=== PATIENT | male | born 1960 | race Caucasian/White ===

== ENCOUNTER → 2018-11-18 10:21 | Outpatient (CLI) | payer MEDICAID | END | disposition home or self-care (01) | LOC: D.MRI 10:21 | DX: M25.562 Pain in left knee (principal) ==

== ENCOUNTER → 2018-11-23 17:28 | Outpatient (CLI) | payer MEDICAID | END | disposition home or self-care (01) | LOC: D.LABREF 17:28 | DX: M17.12 Unilateral primary osteoarthritis, left knee (principal); Z11.8 Encounter for screening for other infectious and parasitic diseases ==

== ENCOUNTER 2018-11-26 10:15 | Inpatient (IN) | payer MEDICAID ==
[~2018-11-26] VITALS: Ht 180.3 cm; Wt 81.8 kg
[2018-12-22] MEDS ORDERED: IBUPROFEN800 MG PO (11:00)
[2018-12-22 11:57] LABS: BASOPHILS 0.3 % (0-2); EOSINOPHILS 2.8 % (0-7); HEMATOCRIT 45.4 % (42.0-54.0); HEMOGLOBIN 15.2 g/dL (13.5-17.5); IMMATURE GRANULOCYTES 0.3 % (0-5); LYMPHOCYTES 41.8 % (15-50); MCH 32.1 pg (26.0-34.0); MCHC 33.5 g/dL (31.0-37.0); MCV 95.8 fL (80.0-100.0); MEAN PLATELET VOLUME 10.4 fL (7.4-10.4); MONOCYTES 6.7 % (2-11); NEUTROPHILS 48.1 % (40-80); PLATELET COUNT 219 10x3/uL (130-400); RBC 4.74 10x6/uL (4.20-6.10); RDW 13.3 % (11.5-14.5)
[2018-12-22 12:04] LABS: CALC OSMOLALITY 279 mosm/kg (275-300); CALCIUM 8.5 mg/dL (8.5-10.1); CARBON DIOXIDE 31.5 mmol/L (21.0-32.0); CHLORIDE - SERUM 103 mmol/L (98-107); CREATININE - SERUM 0.9 mg/dL (0.6-1.3); GLUCOSE 93 mg/dL (74-106); POTASSIUM - SERUM 4.5 mmol/L (3.5-5.1); SODIUM 141 mmol/L (136-145); UREA NITROGEN 11 mg/dL (7-18); eGFR NON AFRICAN AMERICAN > 90 mL/min (90-120)
[2018-12-22 12:10] LABS: APTT 30.4 SECONDS (22.8-39.4); INR 0.92 (0.85-1.17); PROTIME 11.9 SECONDS (11.6-15.0)
[2018-12-22 12:39] LABS: APPEARANCE CLEAR (CLEAR); COLOR YELLOW (YELLOW)
[2018-12-22 12:40] LABS: BILIRUBIN NEGATIVE (NEGATIVE); GLUCOSE NEGATIVE (NEGATIVE); KETONE NEGATIVE (NEGATIVE); NITRITE NEGATIVE (NEGATIVE); PROTEIN NEGATIVE (NEGATIVE); UROBILINOGEN NORMAL (NORMAL)
[2018-12-29 06:09] VITALS: BP 128/81; BMI 25.1
[2018-12-29 10:36] VITALS: BP 116/66
[2018-12-29 13:50] VITALS: Ht 180.3 cm; Wt 81.8 kg
[2018-12-29 16:28] VITALS: BP 112/70
--- NOTE | 2018-12-29 19:30 | NUR ---
REC'D REPORT FROM DAY SHIFT NURSE. ASSESSMENT PER FLOWSHEET. PT LEFT LEG IN CPM MACHINE. DRESSING TO LEFT KNEE C/D/I WITH PROVERA WOUND VAC IN PLACE. IV PATENT LEFT FOREARM OF NS AT 20CC'S/HR SITE CLEAR, VOIDS WELL IN URINAL.
[2018-12-29 20:00] VITALS: BP 110/56
--- NOTE | 2018-12-29 21:17 | NUR ---
C/O PAIN INCISIONAL AREA RATES PAIN LEVEL #4 NORCO 7.5 MG PO GIVEN FOR PAIN CONTROL.
--- NOTE | 2018-12-30 00:32 | NUR ---
EYES CLOSED RESPIRATIONS WITH EAS AND UNLABORED
[2018-12-30 03:53] LABS: BASOPHILS 0 % (0-2); EOSINOPHILS 0.5 % (0-7); HEMATOCRIT 34.1 % (42.0-54.0); HEMOGLOBIN 11.8 g/dL (13.5-17.5); LYMPHOCYTES 28.2 % (15-50); MCH 32.4 pg (26.0-34.0); MCHC 34.6 g/dL (31.0-37.0); MCV 93.7 fL (80.0-100.0); MEAN PLATELET VOLUME 10.3 fL (7.4-10.4); MONOCYTES 9.7 % (2-11); NEUTROPHILS 61.6 % (40-80); RBC 3.64 10x6/uL (4.20-6.10); WBC 7.5 10x3/uL (4.8-10.8)
[2018-12-30 03:55] LABS: PLATELET COUNT 171 10x3/uL (130-400)
[2018-12-30 04:00] VITALS: BP 103/46
--- NOTE | 2018-12-30 04:00 | NUR ---
LAB DRAWN PT VOIDS IN URINAL
[2018-12-30 04:05] LABS: CALC OSMOLALITY 277 mosm/kg (275-300); CALCIUM 7.8 mg/dL (8.5-10.1); CARBON DIOXIDE 30.5 mmol/L (21.0-32.0); CHLORIDE - SERUM 105 mmol/L (98-107); CREATININE - SERUM 0.9 mg/dL (0.6-1.3); GLUCOSE 106 mg/dL (74-106); POTASSIUM - SERUM 3.9 mmol/L (3.5-5.1); SODIUM 140 mmol/L (136-145); UREA NITROGEN 10 mg/dL (7-18); eGFR NON AFRICAN AMERICAN > 90 mL/min (90-120)
[2018-12-30 10:11] VITALS: BP 101/53
--- NOTE | 2018-12-30 11:14 | MORECARE ---
CASE MANAGEMENT DISCHARGE SUMMARY PATIENT: DUKE MCWILLIAMS UNIT: [id number] ADM DATE: 12/29/18 AGE: 58 : 62 SEX: M ROOM/BED: D.2223 AUTHOR: RAFIQ BLACKWELL PHYSICIAN: REFERRING PHYSICIAN: SKYLAR HONG MD DATE OF SERVICE: 12/30/18 Discharge Plan Patient Name: DUKE MCWILLIAMS [facility] : 1960 Planned Disposition: Home Anticipated Discharge Date: 12/31/18 Discharge Date: Expected LOS: 2 Initial Reviewer: [email or web address] Initial Review Date: 12/30/2018 Generated: 12/30/18 12:14 pm DCPIA - Discharge Planning Initial Assessment Updated by [email or web address]: Marjorie Cintron on 12/30/18 11:11 am * Is the patient Alert and Oriented? Yes * How many steps to enter\exit or inside your home? 2/0 * PCP Dr. Marie in [place] * Pharmacy [facility] in [place] * Preadmission Environment Home Alone * ADLs Independent * Equipment None * List name and contact numbers for known caregivers / representatives who currently or will assist patient after discharge: Issac De Jesus - [phone] * Verbal permission to speak to the caregivers and representatives has been obtained from the patient. Yes * Community resources currently utilized None * Additional services required to return to the preadmission environment? Yes * Can the patient safely return to the preadmission environment? Yes * Has this patient been hospitalized within the prior 30 days at any hospital? No External Providers External Provider: OTHER-OTHER Next Contact Date: Service Request Date: Service Type: Resolution: Reviewer: Comments: Patient Name: DUKE MCWILLIAMS Page 38822 at 1114 All edits/amendments must be made on the electronic document DICTATION DATE: 12/30/18 111 SPRING COVERER: DESI 12/30/181112 RPT#: [id number] DC DATE: STATUS: ADM IN [facility] [address] [place] [address] END OF REPORT
--- NOTE | 2018-12-30 11:23 | MORECARE ---
CASE MANAGEMENT DISCHARGE SUMMARY PATIENT: DUKE MCWILLIAMS UNIT: [id number] ADM DATE: 12/29/18 AGE: 58 : 62 SEX: M ROOM/BED: D.2223 AUTHOR: RAFIQ BLACKWELL PHYSICIAN: REFERRING PHYSICIAN: SKYLAR HONG MD DATE OF SERVICE: 12/30/18 Discharge Plan Patient Name: DUKE MCWILLIAMS Facility: [facility]:[place] : 1960 Planned Disposition: Home Anticipated Discharge Date: 12/31/18 Discharge Date: Expected LOS: 2 Initial Reviewer: [email or web address] Initial Review Date: 12/30/2018 Generated: 12/30/18 12:23 pm Comments DCP- Discharge Planning Updated by [email or web address]: Marjorie Cintron on 12/30/18 10:[address] Patient Name: DUKE MCWILLIAMS Admission Status: Elective Accout number: [id number] Admission Date: 12-29-2018 : 1960 Admission Diagnosis: Attending: SKYLAR HONG Current LOS: 1 Anticipated DC Date: 12-31-2018 Planned Disposition: Home Primary Insurance: MEDICAID [place] Discharge Planning Comments: CM met with patient to discuss discharge planning/needs. He lives alone but will be staying with a friend (Issac De Jesus) for awhile post op at [address] [place] [address] in [facility]. Issac will pick him up as well. He does not have any equipment currently. I called the office and Jennifer states she is sending an order for walker, BSC and CPM to [employer]. I called Prem with [employer] and informed him and facesheet faxed to them. Prem states he will send DME here to the hospital tomorrow. Patient asks me to call Issac for OP PT choice. I called Issac and he states to use [facility] in [place]. I called Sports Medicine and spoke with Beatriz. His first appointment will be 11:45 (arrive at 11:00) on Thursday. Beatriz states they will make the other appointments in the afternoon as requested. I will fax the orders when Jennifer from the office faxes it to me. CM will continue to follow and assist with discharge planning/needs. Issac De Jesus (friend) - [phone] [facility] in [place] - [phone] Fax - [phone] Prize Jacker: Marjorie Cintron DCPIA - Discharge Planning Initial Assessment Updated by [email or web address]: Marjorie Cintron on 12/30/18 11:11 am * Is the patient Alert and Oriented? Yes * How many steps to enter\exit or inside your home? 2/0 * PCP Dr. Marie in [place] * Pharmacy [facility] in [place] * Preadmission Environment Home Alone * ADLs Independent * Equipment None * List name and contact numbers for known caregivers / representatives who currently or will assist patient after discharge: Issac Neal - [phone] * Verbal permission to speak to the caregivers and representatives has been obtained from the patient. Yes * Community resources currently utilized None * Additional services required to return to the preadmission environment? Yes * Can the patient safely return to the preadmission environment? Yes * Has this patient been hospitalized within the prior 30 days at any hospital? No Last DP export: 12/30/18 10:14 a Patient Name: DUKE MCWILLIAMS Page 05285 at 1123 All edits/amendments must be made on the electronic document DICTATION DATE: 12/30/181121 HOT KETTLE TENDER: DESI 12/30/181121 RPT#: [id number] DC DATE: STATUS: ADM IN [facility] [address] [place] [address] END OF REPORT
--- NOTE | 2018-12-30 12:34 | MORECARE ---
CASE MANAGEMENT DISCHARGE SUMMARY PATIENT: DUKE MCWILLIAMS UNIT: [id number] ADM DATE: 12/29/18 AGE: 58 : 62 SEX: M ROOM/BED: D.2223 AUTHOR: RAFIQ BLACKWELL PHYSICIAN: REFERRING PHYSICIAN: SKYLAR CANNON MD DATE OF SERVICE: 12/30/18 Discharge Plan Patient Name: DUKE MCWILLIAMS Facility: [facility]:[place] : 1960 Planned Disposition: Home Anticipated Discharge Date: 12/31/18 Discharge Date: Expected LOS: 2 Initial Reviewer: [email or web address] Initial Review Date: 12/30/2018 Generated: 12/30/18 1:34 pm Comments DCP- Discharge Planning Updated by [email or web address]: Marjorie Cintron on 12/30/18 11:[address] Received OP PT orders from Dr. Cannon's office and faxed order and clinical to [facility] in [place]. CM will continue to follow and assist with discharge planning/needs. DCP- Discharge Planning Updated by [email or web address]: Marjorie Cintron on 12/30/18 10:[address] Patient Name: DUKE MCWILLIAMS Admission Status: Elective Accout number: [id number] Admission Date: 12-29-2018 : 1960 Admission Diagnosis: Attending: SKYLAR CANNON Current LOS: 1 Anticipated DC Date: 12-31-2018 Planned Disposition: Home Primary Insurance: MEDICAID [place] Discharge Planning Comments: CM met with patient to discuss discharge planning/needs. He lives alone but will be staying with a friend (Issac De Jesus) for awhile post op at [address] [place] [address] in [facility]. Issac will pick him up as well. He does not have any equipment currently. I called the office and Jennifer states she is sending an order for walker, BSC and CPM to [employer]. I called Prem with [employer] and informed him and facesheet faxed to them. Prem states he will send DME here to the hospital tomorrow. Patient asks me to call Issac for OP PT choice. I called Issac and he states to use [facility] in [place]. I called Sports Medicine and spoke with Beartiz. His first appointment will be 11:45 (arrive at 11:00) on Thursday. Beatriz states they will make the other appointments in the afternoon as requested. I will fax the orders when Jennifer from the office faxes it to me. CM will continue to follow and assist with discharge planning/needs. Issac De Jesus (friend) - [phone] [facility] in [facility] [phone] Fax - [phone] People Greeter: Marjorie Cintron DCPIA - Discharge Planning Initial Assessment Updated by [email or web address]: Marjorie Cintron on 12/30/18 11:11 am * Is the patient Alert and Oriented? Yes * How many steps to enter\exit or inside your home? 2/0 * PCP Dr. Marie in [place] * Pharmacy [facility] in [place] * Preadmission Environment Home Alone * ADLs Independent * Equipment None * List name and contact numbers for known caregivers / representatives who currently or will assist patient after discharge: Issac Gordilloley - [phone] * Verbal permission to speak to the caregivers and representatives has been obtained from the patient. Yes * Community resources currently utilized None * Additional services required to return to the preadmission environment? Yes * Can the patient safely return to the preadmission environment? Yes * Has this patient been hospitalized within the prior 30 days at any hospital? No Last DP export: 12/30/18 10:23 a Patient Name: DUKE MCWILLIAMS Page [id number] at 1234 All edits/amendments must be made on the electronic document DICTATION DATE: 12/30/18 1234 ELECTROENCEPHALOGRAM TECHNOLOGIST: DESI 12/30/18 1234 RPT#: [id number] DC DATE: STATUS: ADM IN [facility] [address] [place] [address] END OF REPORT
[2018-12-30 13:37] VITALS: BP 108/73
--- NOTE | 2018-12-30 14:38 | MORECARE ---
CASE MANAGEMENT DISCHARGE SUMMARY PATIENT: DUKE MCWILLIAMS UNIT: [id number] ADM DATE: 12/29/18 AGE: 58 : 62 SEX: M ROOM/BED: D.2223 AUTHOR: RAFIQ BLACKWELL PHYSICIAN: REFERRING PHYSICIAN: SKYLAR CANNON MD DATE OF SERVICE: 12/30/18 Discharge Plan Patient Name: DUKE MCWILLIAMS Facility: [facility]:[place] : 1960 Planned Disposition: Home Anticipated Discharge Date: 12/31/18 Discharge Date: Expected LOS: 2 Initial Reviewer: [email or web address] Initial Review Date: 12/30/2018 Generated: 12/30/18 3:38 pm Comments DCP- Discharge Planning Updated by [email or web address]: Marjorie Cintron on 12/30/18 1:[address] Beatriz called from OP PT and states that he is not covered for therapy through an outpatient PT. States he will either need hospital based OP PT or can get HHS. He lives in [facility] and will be unable to have transportation to and from a hospital for PT. I spoke with Fredo and he suggest home health. I spoke with the patient and his friend (per patient request) and they chose [facility] in [place]. I called and spoke to Laura at [place] [facility] and clinical faxed. CM will continue to follow and assist with discharge planning/needs. [facility] - [phone] Fax - [phone] DCP- Discharge Planning Updated by [email or web address]: Marjorie Cintron on 12/30/18 11:[address] Received OP PT orders from Dr. Cannon's office and faxed order and clinical to [facility] in [place]. CM will continue to follow and assist with discharge planning/needs. DCP- Discharge Planning Updated by [email or web address]: Marjorie Cintron on 12/30/18 10:[address] Patient Name: DUKE MCWILLIAMS Admission Status: Elective Accout number: [id number] Admission Date: 12-29-2018 : 1960 Admission Diagnosis: Attending: SKYLAR CANNON Current LOS: 1 Anticipated DC Date: 12-31-2018 Planned Disposition: Home Primary Insurance: MEDICAID [place] Discharge Planning Comments: CM met with patient to discuss discharge planning/needs. He lives alone but will be staying with a friend (Issac De Jesus) for awhile post op at [address] in [facility]. Issac will pick him up as well. He does not have any equipment currently. I called the office and Jennifer states she is sending an order for walker, BSC and CPM to [employer]. I called Prem with [employer] and informed him and facesheet faxed to them. Prem states he will send DME here to the hospital tomorrow. Patient asks me to call Issac for OP PT choice. I called Issac and he states to use [facility] in [place]. I called Sports Medicine and spoke with Beatriz. His first appointment will be 11:45 (arrive at 11:00) on Thursday. Beatriz states they will make the other appointments in the afternoon as requested. I will fax the orders when Jennifer from the office faxes it to me. CM will continue to follow and assist with discharge planning/needs. Issac De Jesus (friend) - [phone] [facility] in [place] - [phone] Fax - [phone] Microbiology Laboratory Manager: Marjorie Cintron [facility] - Discharge Planning Initial Assessment Updated by [email or web address]: Marjorie Cintron on 12/30/18 11:11 am * Is the patient Alert and Oriented? Yes * How many steps to enter\exit or inside your home? 2/0 * PCP Dr. Marie in [place] * Pharmacy [facility] in [place] * Preadmission Environment Home Alone * ADLs Independent * Equipment None * List name and contact numbers for known caregivers / representatives who currently or will assist patient after discharge: Issac Neal - [phone] * Verbal permission to speak to the caregivers and representatives has been obtained from the patient. Yes * Community resources currently utilized None * Additional services required to return to the preadmission environment? Yes * Can the patient safely return to the preadmission environment? Yes * Has this patient been hospitalized within the prior 30 days at any hospital? No External Providers External Provider: [facility] Next Contact Date: Service Request Date: Service Type: Resolution: Reviewer: Comments: Last DP export: 12/30/18 11:34 a Patient Name: DUKE MCWILLIAMS Page 19510 at 1438 All edits/amendments must be made on the electronic document DICTATION DATE: 12/30/181436 COMMUNICATIONS PLANNER: DESI 12/30/181436 RPT#: [id number] DE DATE: STATUS: ADM IN [facility] [address] [place] [address] END OF REPORT
[2018-12-30 17:34] VITALS: BP 100/67
--- NOTE | 2018-12-30 18:50 | NUR ---
I have reviewed this patient and I concur with the Shift Assessment completed by the Licensed Practical Nurse today this shift.
--- NOTE | 2018-12-30 19:00 | NUR ---
REPORT RECEIVED AND CARE OF PT ASSUMED. PT LYING IN SUPINE POSITION...CPM OFF AND SITTING NEXT TO LEFT LEG...PT STATES HE TOOK IT OFF BECAUSE OF PAIN. DRESSING ON LEFT KNEE CLEAN AND DRY. IV IN LEFT FA SALINE LOCKED. WILL MONITOR FOR NEEDS.
[2018-12-30 20:00] VITALS: BP 134/81
--- NOTE | 2018-12-30 20:19 | NUR ---
HS MEDICATIONS GIVEN TO INCLUDE MORPHINE 2 MG IVP PER REQUEST FOR PAIN. WILL MONITOR FOR EFFECTIVENESS.
--- NOTE | 2018-12-30 22:41 | NUR ---
GAVE NORCO PO PER PT REQUEST FOR PAIN AT LEVEL 9/10. WILL MONITOR FOR EFFECTIVENESS.
[2018-12-31] VITALS: BP 134/85
[2018-12-31 03:52] LABS: BASOPHILS 0.1 % (0-2); EOSINOPHILS 0.5 % (0-7); HEMATOCRIT 34.1 % (42.0-54.0); HEMOGLOBIN 11.5 g/dL (13.5-17.5); LYMPHOCYTES 27.7 % (15-50); MCH 31.5 pg (26.0-34.0); MCHC 33.7 g/dL (31.0-37.0); MCV 93.4 fL (80.0-100.0); MEAN PLATELET VOLUME 9.9 fL (7.4-10.4); MONOCYTES 8.7 % (2-11); PLATELET COUNT 161 10x3/uL (130-400); RBC 3.65 10x6/uL (4.20-6.10); RDW 12.9 % (11.5-14.5); WBC 8.6 10x3/uL (4.8-10.8)
[2018-12-31 04:00] VITALS: BP 117/74
[2018-12-31 09:18] VITALS: BP 140/84
--- NOTE | 2018-12-31 11:49 | MORECARE ---
CASE MANAGEMENT DISCHARGE SUMMARY PATIENT: DUKE MCWILLIAMS UNIT: [id number] ADM DATE: 12/29/18 AGE: 58 : 62 SEX: M ROOM/BED: D.2223 AUTHOR: RISHI,DOC PHYSICIAN: REFERRING PHYSICIAN: SKYLAR CANNON MD DATE OF SERVICE: 12/31/18 Discharge Plan Patient Name: DUKE MCWILLIAMS Facility: [facility]:[place] : 1960 Planned Disposition: Home Anticipated Discharge Date: 12/31/18 Discharge Date: Expected LOS: 2 Initial Reviewer: [email or web address] Initial Review Date: 12/30/2018 Generated: 12/31/18 12:49 pm Comments DCP- Discharge Planning Updated by [email or web address]: Marjorie Cintron on 12/31/18 10:[address] [facility] in [place] and informed to anticipate discharge tomorrow. They will see him for nursing on Thursday and PT on Thursday. CM will continue to follow and assist with discharge planning/needs. DCP- Discharge Planning Updated by [email or web address]: Marjorie Cintron on 12/30/18 1:[address] Beatriz called from OP PT and states that he is not covered for therapy through an outpatient PT. States he will either need hospital based OP PT or can get HHS. He lives in [facility] and will be unable to have transportation to and from a hospital for PT. I spoke with Fredo and he suggest home health. I spoke with the patient and his friend (per patient request) and they chose [facility] in [place]. I called and spoke to Laura at [place] [employer] and clinical faxed. CM will continue to follow and assist with discharge planning/needs. [facility] - [phone] Fax - [phone] DCP- Discharge Planning Updated by [email or web address]: Marjorie Cintron on 12/30/18 11:[address] Received OP PT orders from Dr. Cannon's office and faxed order and clinical to [facility] in [place]. CM will continue to follow and assist with discharge planning/needs. DCP- Discharge Planning Updated by [email or web address]: Marjorie Cintron on 12/30/18 10:[address] Patient Name: DUKE MCWILLIAMS Admission Status: Elective Accout number: [id number] Admission Date: 12-29-2018 : 1960 Admission Diagnosis: Attending: SKYLAR CANNON Current LOS: 1 Anticipated DC Date: 12-31-2018 Planned Disposition: Home Primary Insurance: MEDICAID [place] Discharge Planning Comments: CM met with patient to discuss discharge planning/needs. He lives alone but will be staying with a friend (Issac De Jesus) for awhile post op at [address] [place] [address] in [facility]. Issac will pick him up as well. He does not have any equipment currently. I called the office and Jennifer states she is sending an order for walker, BSC and CPM to [employer]. I called Prem with [employer] and informed him and facesheet faxed to them. Prem states he will send DME here to the hospital tomorrow. Patient asks me to call Issac for OP PT choice. I called Issac and he states to use [facility] in [place]. I called Sports Medicine and spoke with Beatriz. His first appointment will be 11:45 (arrive at 11:00) on Thursday. Beatriz states they will make the other appointments in the afternoon as requested. I will fax the orders when Jennifer from the office faxes it to me. CM will continue to follow and assist with discharge planning/needs. Issac De Jesus (friend) - [phone] [facility] in [place] - [phone] Fax - [phone] Judo Teacher: Marjorie Cintron DCPIA - Discharge Planning Initial Assessment Updated by [email or web address]: Marjorie Cintron on 12/30/18 11:11 am * Is the patient Alert and Oriented? Yes * How many steps to enter\exit or inside your home? 2/0 * PCP Dr. Marie in [place] * Pharmacy [facility] in [place] * Preadmission Environment Home Alone * ADLs Independent * Equipment None * List name and contact numbers for known caregivers / representatives who currently or will assist patient after discharge: Issac De Jesus - [phone] * Verbal permission to speak to the caregivers and representatives has been obtained from the patient. Yes * Community resources currently utilized None * Additional services required to return to the preadmission environment? Yes * Can the patient safely return to the preadmission environment? Yes * Has this patient been hospitalized within the prior 30 days at any hospital? No Last DP export: 12/30/18 1:38 p Patient Name: DUKE MCWILLIAMS Page 51957 at 1149 All edits/amendments must be made on the electronic document DICTATION DATE: 12/31/18 114 CTC OPERATOR: DESI 12/31/18 1149 RPT#: [id number] DC DATE: STATUS: ADM IN [facility] [address] [place] [address] END OF REPORT
[2018-12-31 13:03] VITALS: BP 141/75
[2018-12-31 16:00] VITALS: BP 128/84
--- NOTE | 2018-12-31 18:00 | NUR ---
I have reviewed this patient and I concur with the Shift Assessment completed by the Licensed Practical Nurse today this shift.
--- NOTE | 2018-12-31 19:00 | NUR ---
REPORT RECEIVED AND CARE OF PT ASSUMED. PT LYING IN SUPINE POSITION WITH CPM IN PLACE ON LEFT LEG. IV IN LEFT FA SALINE LOCKED. WILL MONITOR FOR NEEDS.
[2018-12-31 20:00] VITALS: BP 133/77
--- NOTE | 2018-12-31 21:21 | NUR ---
HS MEDICATIONS GIVEN TO INCLUDE NORCO PER REQUEST FOR PAIN. WILL MONITOR FOR NEEDS.
[2019-01-01] VITALS: BP 130/68
[2019-01-01 03:00] VITALS: BP 122/74
[2019-01-01 05:08] LABS: BASOPHILS 0.3 % (0-2); EOSINOPHILS 1.9 % (0-7); HEMOGLOBIN 11.4 g/dL (13.5-17.5); IMMATURE GRANULOCYTES 0.1 % (0-5); LYMPHOCYTES 35.2 % (15-50); MCH 31.6 pg (26.0-34.0); MCHC 33.5 g/dL (31.0-37.0); MCV 94.2 fL (80.0-100.0); MEAN PLATELET VOLUME 10.4 fL (7.4-10.4); NEUTROPHILS 53.5 % (40-80); PLATELET COUNT 184 10x3/uL (130-400); RBC 3.61 10x6/uL (4.20-6.10); RDW 12.8 % (11.5-14.5); WBC 7.8 10x3/uL (4.8-10.8)
[2019-01-01 09:04] VITALS: BP 110/81
[2019-01-01] MEDS ORDERED: ASPIRIN325 MG PO (09:12)
[2019-01-01] MEDS ORDERED: HYDROCODON-ACE1 EAC2 PO (09:13)
--- NOTE | 2019-01-01 09:28 | NUR ---
PT TO BE DC TODAY, CHANGE DRESSING AND GO OVER PT EDUCATION WITH CPM MACHINE AND PAIN CONTROL, ALL QUESTIONS ANSWERED
--- NOTE | 2019-01-03 08:21 | MORECARE ---
CASE MANAGEMENT DISCHARGE SUMMARY PATIENT: DUKE MCWILLIAMS UNIT: [id number] ADM DATE: 12/29/18 AGE: 58 : 62 SEX: M ROOM/BED: D.2223 AUTHOR: RISHI,DOC PHYSICIAN: REFERRING PHYSICIAN: SKYLAR CANNON MD DATE OF SERVICE: 01/03/19 Discharge Plan Patient Name: DUKE MCWILLIAMS Facility: [facility]:[place] : 1960 Planned Disposition: Home Anticipated Discharge Date: 12/31/18 Discharge Date: 01/01/2019 Expected LOS: 2 Initial Reviewer: [email or web address] Initial Review Date: 12/30/2018 Generated: 01/03/19 9:21 am Comments DCP- Discharge Planning Updated by [email or web address]: Marjorie Cintron on 01/03/19 7:[address] Spoke with Laura at [facility] and discharge clinical faxed. DCP- Discharge Planning Updated by [email or web address]: Marjorie Cintron on 12/31/18 10:[address] Called [facility] in [place] and informed to anticipate discharge tomorrow. They will see him for nursing on Thursday and PT on Thursday. CM will continue to follow and assist with discharge planning/needs. DCP- Discharge Planning Updated by [email or web address]: Marjorie Cintron on 12/30/18 1:[address] Beatriz called from OP PT and states that he is not covered for therapy through an outpatient PT. States he will either need hospital based OP PT or can get HHS. He lives in [place] and will be unable to have transportation to and from a hospital for PT. I spoke with Fredo and he suggest home health. I spoke with the patient and his friend (per patient request) and they chose [facility] in [place]. I called and spoke to Laura at [facility] and clinical faxed. CM will continue to follow and assist with discharge planning/needs. [facility] - [phone] Fax - [phone] DCP- Discharge Planning Updated by [email or web address]: Marjorie Cintron on 12/30/18 11:[address] Received OP PT orders from Dr. Cannon's office and faxed order and clinical to [facility] in [place]. CM will continue to follow and assist with discharge planning/needs. DCP- Discharge Planning Updated by [email or web address]: Marjorie Cintron on 12/30/18 10:[address] Patient Name: DUKE MCWILLIAMS Admission Status: Elective Accout number: [id number] Admission Date: 12-29-2018 : 1960 Admission Diagnosis: Attending: SKYLAR CANNON Current LOS: 1 Anticipated DC Date: 12-31-2018 Planned Disposition: Home Primary Insurance: MEDICAID [place] Discharge Planning Comments: CM met with patient to discuss discharge planning/needs. He lives alone but will be staying with a friend (Issac De Jesus) for awhile [facility] [address] [place] [address] in [place]. Issac will pick him up as well. He does not have any equipment currently. I called the office and Jennifer states she is sending an order for walker, BSC and CPM to [employer]. I called Prem with [employer] and informed him and facesheet faxed to them. Prem states he will send DME here to the hospital tomorrow. Patient asks me to call Issac for OP PT choice. I called Issac and he states to use [facility] in [place]. I called Sports Medicine and spoke with Beatriz. His first appointment will be 11:45 (arrive at 11:00) on Thursday. Beatriz states they will make the other appointments in the afternoon as requested. I will fax the orders when Jennifer from the office faxes it to me. CM will continue to follow and assist with discharge planning/needs. Issac De Jesus (friend) - [phone] [facility] in [place] - [phone] Fax - [phone] Clinical Allergist: Marjorie Cintron DCPIA - Discharge Planning Initial Assessment Updated by [email or web address]: Marjorie Cintron on 12/30/18 11:11 am * Is the patient Alert and Oriented? Yes * How many steps to enter\exit or inside your home? 2/0 * PCP Dr. Marie in [place] * Pharmacy [facility] in [place] * Preadmission Environment Home Alone * ADLs Independent * Equipment None * List name and contact numbers for known caregivers / representatives who currently or will assist patient after discharge: Issac De Jesus - [phone] * Verbal permission to speak to the caregivers and representatives has been obtained from the patient. Yes * Community resources currently utilized None * Additional services required to return to the preadmission environment? Yes * Can the patient safely return to the preadmission environment? Yes * Has this patient been hospitalized within the prior 30 days at any hospital? No Last DP export: 12/31/18 10:49 a Patient Name: DUKE MCWILLIAMS Page [id number] at 0821 All edits/amendments must be made on the electronic document DICTATION DATE: 01/03/19820 REAL PROPERTY APPRAISER: DESI 01/03/19820 RPT#: [id number] DC DATE:01/01/19 STATUS: DIS IN [facility] [address] [place] [address] END OF REPORT
--- NOTE | 2019-01-04 07:18 | MORECARE ---
CASE MANAGEMENT DISCHARGE SUMMARY PATIENT: DUKE MCWILLIAMS UNIT: [id number] ADM DATE: 12/29/18 AGE: 58 : 62 SEX: M ROOM/BED: D.2223 AUTHOR: RISHI,DOC PHYSICIAN: REFERRING PHYSICIAN: SKYLAR CANNON MD DATE OF SERVICE: 01/04/19 Discharge Plan Patient Name: DUKE MCWILLIAMS Facility: [facility]:[place] : 1960 Planned Disposition: Home Anticipated Discharge Date: 12/31/18 Discharge Date: 01/01/2019 Expected LOS: 2 Initial Reviewer: [email or web address] Initial Review Date: 12/30/2018 Generated: 01/04/19 8:18 am Comments DCP- Discharge Planning Updated by [email or web address]: Marjorie Cintron on 01/03/19 7:[address] Spoke with Laura at [facility] [employer] [facility] and discharge clinical faxed. DCP- Discharge Planning Updated by [email or web address]: Marjorie Cintron on 12/31/18 10:[address] Called [facility] in [place] and informed to anticipate discharge tomorrow. They will see him for nursing on Thursday and PT on Thursday. CM will continue to follow and assist with discharge planning/needs. DCP- Discharge Planning Updated by [email or web address]: Marjorie Cintron on 12/30/18 1:[address] Beatriz called from OP PT and states that he is not covered for therapy through an outpatient PT. States he will either need hospital based OP PT or can get HHS. He lives in [facility] and will be unable to have transportation to and from a hospital for PT. I spoke with Fredo and he suggest home health. I spoke with the patient and his friend (per patient request) and they chose [facility] in [place]. I called and spoke to Laura at [facility] [facility] and clinical faxed. CM will continue to follow and assist with discharge planning/needs. [facility] [employer] - [phone] Fax - [phone] DCP- Discharge Planning Updated by [email or web address]: Marjorie Cintron on 12/30/18 11:[address] Received OP PT orders from Dr. Cannon's office and faxed order and clinical to [facility] in [place]. CM will continue to follow and assist with discharge planning/needs. DCP- Discharge Planning Updated by [email or web address]: Marjorie Cintron on 12/30/18 10:[address] Patient Name: DUKE MCWILLIAMS Admission Status: Elective Accout number: [id number] Admission Date: 12-29-2018 : 1960 Admission Diagnosis: Attending: SKYLAR CANNON Current LOS: 1 Anticipated DC Date: 12-31-2018 Planned Disposition: Home Primary Insurance: MEDICAID [place] Discharge Planning Comments: CM met with patient to discuss discharge planning/needs. He lives alone but will be staying with a friend (Issac De Jesus) for awhile [facility] op [facility] [address] [place] [address] in [facility]. Issac will pick him up as well. He does not have any equipment currently. I called the office and Jennifer states she is sending an order for walker, BSC and CPM to [email or web address]. I called Prem with [employer] and informed him and facesheet faxed to them. Prem states he will send DME here to the hospital tomorrow. Patient asks me to call Issac for OP PT choice. I called Issac and he states to use [facility] in [place]. I called Sports Medicine and spoke with Beatriz. His first appointment will be 11:45 (arrive at 11:00) on Thursday. Beatriz states they will make the other appointments in the afternoon as requested. I will fax the orders when Jennifer from the office faxes it to me. CM will continue to follow and assist with discharge planning/needs. Issac De Jesus (friend) - [phone] [facility] in [place] - [phone] Fax - [phone] [employer] Dealer: Marjorie Cintron DCPIA - Discharge Planning Initial Assessment Updated by [email or web address]: Marjorie Cintron on 12/30/18 11:11 am * Is the patient Alert and Oriented? Yes * How many steps to enter\exit or inside your home? 2/0 * PCP Dr[facility] Marie in [place] * Pharmacy [facility] in [place] * Preadmission Environment Home Alone * ADLs Independent * Equipment None * List name and contact numbers for known caregivers / representatives who currently or will assist patient after discharge: Issac De Jesus - [phone] * Verbal permission to speak to the caregivers and representatives has been obtained from the patient. Yes * Community resources currently utilized None * Additional services required to return to the preadmission environment? Yes * Can the patient safely return to the preadmission environment? Yes * Has this patient been hospitalized within the prior 30 days at any hospital? No Last DP export: 01/03/19 7:21 a Patient Name: DUKE MCIWLLIAMS Page [id number] at 0718 All edits/amendments must be made on the electronic document DICTATION DATE: 01/04/19716 FIELD REPRESENTATIVE: DESI 01/04/19716 RPT#: [id number] DC DATE:01/01/19 STATUS: DIS IN [facility] [address] [place] [address] END OF REPORT
== END 2019-01-01 12:28 | disposition home health service (06) | DRG 470 ==
LOC: D.SDCHOLD 12-29 05:00 → D.MS 12-29 05:00 → D.SDCHOLD 12-29 07:30 → D.MS 12-29 10:15
PROVIDERS: ADMIT Orthopaedic Surgery; ATTEND Orthopaedic Surgery
PROC: 0SRD0J9 Replacement of Left Knee Joint with Synthetic Substitute, Cemented, Open Approach (ICD-10-PCS; principal; 2018-12-29 07:30)
DX: M13.862 Other specified arthritis, left knee (principal)